=== PATIENT | female | born 1960 | race Caucasian/White ===

== ENCOUNTER 2016-03-06 14:58 | Outpatient (RCR) | payer BC ==
--- OUTSIDE RECORDS SUMMARY | 2016-03-06 15:00 | XMS REPORT | Continuity of Care Document ---
Author Author [facility] Organization [facility] Address Unknown Phone Unavailable Care Team Providers Care Regular Senior Care Provider Name Role Phone FERMIN JORGENSEN MD PCP Insurance Providers Payer Name Policy Number Subscriber Name Relationship [facility] [id number] Cary Fu 17 Self / Same As Patient Advance Directives Directive Response Recorded Date/Time Advance Directives Yes 06/18/14 9:10am Health Care Power of Mathematical Scientist Yes 06/18/14 9:10am Organ Donor Yes 06/18/14 9:10am Resuscitation Status Full Code 06/18/14 9:10am Problems No known problems or medical conditions. Medications No known medications. Social History Social History Problem Response Recorded Date/Time Recent Foreign Travel No 06/18/2014 9:17am Smoking Status Never a Smoker 06/18/2014 9:14am Do you dip or chew tobacco? No 06/18/2014 9:14am Query Response Start Date Stop Date Smoking Status Never a Smoker Hospital Discharge Instructions No hospital discharge instructions. Plan of Care No plan of care. Functional Status No functional status results. Allergies, Adverse Reactions, Alerts Allergen Type Severity Reaction Status Last Updated SULFA Allergy Unknown Active 06/18/14 TAPE Allergy Intermediate Active 06/18/14 Immunizations No immunization records. Vital Signs Acute Vital Signs Vital Response Date/Time Temperature (Fahrenheit) 97.5 degrees F (97.6 - 99.5) Temperature (Calculated Celsius) 36.77209 degrees C (36.4 - 37.5) Temperature Source Tympanic Pulse Rate (adult) 88 bpm (60 - 90) Respiratory Rate 20 bpm (12 - 24) O2 Sat by Pulse Oximetry 99 % (88 - 100) Blood Pressure 138/80 mm Hg Pain Pain Intensity 0 Height (Feet) 5 feet Height (Inches) 6.00 inches Height (Calculated Centimeters) 167.689374 cm Weight (Pounds) 250 pounds Weight (Calculated Grams) 882102.094 gm Weight (Calculated Kilograms) 113.464497 kilograms Height 5 ft 6 in Weight 250 lb Body Mass Index 40.4 kg/m^2 Results No known relevant diagnostic tests, laboratory data and/or discharge summary. Procedures Procedure Status Date Provider(s) Diagnostic colonoscopy completed 06/18/14 ZACKARY ASHBY MD Encounters Encounter Location Date/Time Registered [facility] 06/18/14 8:44am Registered Clinic [facility] 06/16/14 7:21am
== END 2016-06-04 | disposition home or self-care (01) ==
LOC: ONC 14:58
PROVIDERS: ATTEND Internal Medicine Hematology & Oncology
DX: C50.111 Malignant neoplasm of central portion of right female breast (principal)
CPT/HCPCS: 99213

== ENCOUNTER → 2017-02-27 | Outpatient (CLI) | payer BC ==
--- NOTE | 2017-03-01 07:51 | Diagnostic Imaging Report ---
Left breast screening mammogram 2D views with tomosynthesis The current study was also evaluated with a Computer Aided Detection (CAD) system. Indication: Screening. No current complaints stated on the questionnaire. Status post right mastectomy for breast cancer COMPARISON: 02/27/16 FINDINGS: Scattered fibroglandular densities are seen in the left breast and scattered benign appearing calcifications are noted. Allowing for technique and positional differences, no suspicious change is seen. IMPRESSION: No significant change. ACR BI-RADS Category 2: Benign findings. Result letter will be mailed to the patient. Note: At least 10% of breast cancer is not imaged by mammography. Dictated by: Dictated on workstation # [id number]
== END ==
LOC: RAD 08:47
PROVIDERS: ATTEND Nurse Practitioner Adult Health
DX: Z12.31 Encounter for screening mammogram for malignant neoplasm of breast (principal); Z85.3 Personal history of malignant neoplasm of breast; E28.319 Asymptomatic premature menopause

== ENCOUNTER 2017-03-04 14:50 | Outpatient (RCR) | payer BC ==
[2017-03-04 15:14] LABS: BASOPHILS % (AUTO) 0 % (0-10); EOSINOPHILS % (AUTO) 1 % (0-10); HEMATOCRIT 40 % (35-52); HEMOGLOBIN 14.1 G/DL (11.5-16.0); LYMPHOCYTES # (AUTO) 1.9 X 10^3 (1.0-4.0); LYMPHOCYTES % (AUTO) 32 % (12-44); MEAN CORPUSCULAR HEMOGLOBIN 30 PG (25-34); MEAN CORPUSCULAR HGB CONC 35 G/DL (32-36); MEAN CORPUSCULAR VOLUME 86 FL (80-99); MEAN PLATELET VOLUME 10.8 FL (7.4-10.4); MONOCYTES # (AUTO) 0.4 X 10^3 (0.0-1.0); MONOCYTES % (AUTO) 7 % (0-12); NEUTROPHILS # (AUTO) 3.7 X 10^3 (1.8-7.8); NEUTROPHILS % (AUTO) 61 % (42-75); PLATELET COUNT 235 10^3/uL (130-400); RED BLOOD COUNT 4.69 10^6/uL (4.35-5.85); RED CELL DISTRIBUTION WIDTH 13.5 % (10.0-14.5); WHITE BLOOD COUNT 6.1 10^3/uL (4.3-11.0)
[2017-03-04 15:38] LABS: ALANINE AMINOTRANSFERASE 22 U/L (0-55); ALBUMIN 4.4 GM/DL (3.2-4.5); ALKALINE PHOSPHATASE 63 U/L (40-136); BILIRUBIN,TOTAL 1.2 MG/DL (0.1-1.0); BUN/CREATININE RATIO 16; CALCIUM 9.7 MG/DL (8.5-10.1); CARBON DIOXIDE 23 MMOL/L (21-32); CHLORIDE 106 MMOL/L (98-107); CREATININE SERUM 0.87 MG/DL (0.60-1.30); GFR ESTIMATED > 60; GLUCOSE 97 MG/DL (70-105); POTASSIUM 3.9 MMOL/L (3.6-5.0); SODIUM 140 MMOL/L (135-145); TOTAL PROTEIN 7.6 GM/DL (6.4-8.2)
== END 2017-06-02 | disposition home or self-care (01) ==
LOC: ONC 14:50
PROVIDERS: ATTEND Internal Medicine Hematology & Oncology
DX: C50.111 Malignant neoplasm of central portion of right female breast (principal); E28.319 Asymptomatic premature menopause
CPT/HCPCS: 80053; 99213

== ENCOUNTER → 2017-10-22 | Outpatient (CLI) | payer BC ==
[~2017-10-22] MED LIST: IOHEXOL 350 MG/ML 100 ML (OMNIPAQUE 350) VIAL IV ONE; NS 250 ML (IVPB) BAG IV ONE
[2017-10-22 13:34] LABS: BUN/CREATININE RATIO 14; CREATININE SERUM 0.86 MG/DL (0.60-1.30); GFR ESTIMATED > 60
--- NOTE | 2017-10-22 14:30 | Diagnostic Imaging Report ---
PROCEDURE: CT chest and abdomen with contrast. TECHNIQUE: Multiple contiguous axial images were obtained through the chest and abdomen after the administration of intravenous contrast. INDICATION: Chest tightness. No prior studies are available for comparison. CT CHEST: Postop changes of right mastectomy are noted. No axillary lymphadenopathy is detected. No definite hilar or mediastinal lymphadenopathy is identified. No pericardial or pleural fluid is identified. The central airways are patent. Lungs appear to be clear apart from some scarring in the medial aspect of the right apex. No parenchymal mass or nodule is seen. The thoracic aorta is normal caliber. No dissection is identified. Visualized pulmonary arteries are unremarkable. IMPRESSION: Essentially unremarkable CT of the chest. CT ABDOMEN: No discrete liver mass is identified. The gallbladder is unremarkable. The pancreas and spleen are unremarkable. No adrenal mass is detected. There is a cyst in the right kidney measuring 4.1 x 3.3 cm. Kidneys are otherwise unremarkable. Abdominal aorta is normal caliber. No dissection is seen. No central, retroperitoneal or mesenteric lymphadenopathy is seen. The small and large bowel loops are normal caliber. There is no ascites. IMPRESSION: 1. Right renal cyst. 2. Otherwise unremarkable CT of the abdomen. No acute feature is detected. Dictated by: Dictated on workstation # [id number]
== END ==
LOC: CARD 13:01
PROVIDERS: ATTEND Physician Assistant
DX: R07.89 Other chest pain (principal); R10.13 Epigastric pain; N28.1 Cyst of kidney, acquired; Z85.3 Personal history of malignant neoplasm of breast; Z90.11 Acquired absence of right breast and nipple
CPT/HCPCS: 36415; 71260; 74160; 82565; 84520; 93005

== ENCOUNTER 2017-10-28 14:10 | Outpatient (RCR) | payer BC | END 2017-11-12 | disposition home or self-care (01) | LOC: CARD 14:10 | PROVIDERS: ATTEND Physician Assistant | DX: R00.2 Palpitations (principal) | CPT/HCPCS: 93225; 93226 ==

== ENCOUNTER → 2017-10-31 | Outpatient (CLI) | payer BC | LOC: LAB 09:28 | PROVIDERS: ATTEND Physician Assistant | DX: R10.13 Epigastric pain (principal); R07.89 Other chest pain; Z85.3 Personal history of malignant neoplasm of breast ==

== ENCOUNTER → 2017-11-11 | Outpatient (CLI) | payer BC | LOC: CARD 11:53 | PROVIDERS: ATTEND Internal Medicine Interventional Cardiology | DX: C50.111 Malignant neoplasm of central portion of right female breast (principal); R07.89 Other chest pain; I10 Essential (primary) hypertension; R00.2 Palpitations | CPT/HCPCS: 93306 ==

== ENCOUNTER 2017-12-17 12:00 | Outpatient (RCR) | payer BC ==
[2017-11-21 09:07] VITALS: BP 146/85
[2017-11-21 09:10] VITALS: BP 186/87
[2017-11-21 12:58] VITALS: BP 146/85
--- NOTE | 2017-11-21 12:58 | Cardiology Stress Test Report ---
Stress Test Report Type of NM Stress Test: Test Type: LEXISCAN 0.4MG/5ML Date of Procedure/Referring: Date of Procedure: Nov 21, 2017 PCP Oscar Waterman MD Admitting Physician Nirav Pittman MD Indications: Palpitations, chest pain Baseline Heart Rate: 85 Baseline Blood Pressure: Blood Pressure Systolic: 146 Blood Pressure Diastolic: 85 Baseline EKG: Baseline EKG: sinus rhythm Summary & Conclusion: Summary: The patient was brought to the stress lab after informed consent was taken. Stress test was performed according to the Lexiscan protocol. 0.4 mg of IV Lexiscan was given. Low-grade exercise was performed. Baseline EKG showed sinus rhythm at 85 BPM. Initial blood pressure was 146/85 mmHg. Maximum heart rate was 132 bpm and blood pressure 186/87 mmHg. Patient did not have any chest pain, arrhythmias or ST segment changes during the stress test. 10.33 mCi of Myoview were given for rest imaging and 30.2 mCi of Myoview given for stress imaging. EF 70 percent. Normal wall motion. Small to intermediate sized reversible apical defect. No infarct. Conclusion: Pharmacological stress test was negative for ischemia. Elevated blood pressure. Normal LV function with no wall motion abnormalities. All to intermediate size apical reversible defect. Clinical correlation is recommended.. Oscar WATERMAN MD Nov 21, 2017 12:58 pm
[~2017-12-17] VITALS: Ht 167.6 cm; Wt 105.7 kg
[~2017-12-17 12:00] MED LIST changes: +CATHETER FLUSH 10 ML SYR IV PRN; -IOHEXOL 350 MG/ML 100 ML (OMNIPAQUE 350) VIAL IV ONE; -NS 250 ML (IVPB) BAG IV ONE; +REGADENOSON 0.4 MG/5 ML SYR (LEXISCAN) IV ONE
== END 2018-02-19 | disposition home or self-care (01) ==
LOC: CARD 12:00
PROVIDERS: ATTEND Internal Medicine Interventional Cardiology
DX: R00.2 Palpitations (principal); I10 Essential (primary) hypertension; R07.89 Other chest pain; C50.111 Malignant neoplasm of central portion of right female breast
CPT/HCPCS: 78452; 93017; 93270

== ENCOUNTER → 2018-02-28 | Outpatient (CLI) | payer BC ==
--- NOTE | 2018-02-28 14:09 | Diagnostic Imaging Report ---
INDICATION: Routine screening. COMPARISON is made with prior mammograms from 02/27/2017 and 02/27/2016. TECHNIQUE: 2-D and 3-D unilateral left screening mammography was performed with CAD. FINDINGS: Scattered fibroglandular densities are identified in the left breast. No mass or malignant-appearing microcalcifications are seen. The left axilla is unremarkable. IMPRESSION: BI-RADS category 1. No mammographic features suspicious for malignancy are identified. ACR BI-RADS Category 1: Negative. Result letter will be mailed to the patient. Note: At least 10% of breast cancer is not imaged by mammography. Dictated by: Dictated on workstation # [id number]
== END ==
LOC: RAD 07:40
PROVIDERS: ATTEND Internal Medicine Hematology & Oncology
DX: Z12.31 Encounter for screening mammogram for malignant neoplasm of breast (principal); C50.111 Malignant neoplasm of central portion of right female breast

== ENCOUNTER → 2018-02-28 | Outpatient (CLI) | payer BC | LOC: LAB 08:10 | PROVIDERS: ATTEND Internal Medicine | DX: E78.2 Mixed hyperlipidemia (principal); C50.911 Malignant neoplasm of unspecified site of right female breast; K21.9 Gastro-esophageal reflux disease without esophagitis; Z79.899 Other long term (current) drug therapy ==

== ENCOUNTER 2018-03-11 09:24 | Outpatient (RCR) | payer BC | END 2018-05-29 | disposition home or self-care (01) | LOC: ONC 09:24 | PROVIDERS: ATTEND Internal Medicine Hematology & Oncology | DX: Z08 Encounter for follow-up examination after completed treatment for malignant neoplasm (principal); Z85.3 Personal history of malignant neoplasm of breast; E28.319 Asymptomatic premature menopause; G56.91 Unspecified mononeuropathy of right upper limb; E78.5 Hyperlipidemia, unspecified; I49.1 Atrial premature depolarization; E66.9 Obesity, unspecified; Z68.35 Body mass index [BMI] 35.0-35.9, adult; Z79.899 Other long term (current) drug therapy; Z90.11 Acquired absence of right breast and nipple; Z92.21 Personal history of antineoplastic chemotherapy; Z92.3 Personal history of irradiation | CPT/HCPCS: 36415; 80053; 85025; 99213 ==

== ENCOUNTER → 2019-03-02 | Outpatient (CLI) | payer BC ==
--- NOTE | 2019-03-02 11:38 | Diagnostic Imaging Report ---
INDICATION: Routine screening. Comparison is made with prior mammogram from 02/28/2018 and 02/27/2017. Unilateral left 2-D and 3-D screening mammography was performed with CAD. Scattered fibroglandular densities in the left breast are noted. The parenchymal pattern is stable. No mass or malignant-appearing microcalcifications are seen. Left axilla is unremarkable. IMPRESSION: BI-RADS Category 1 No mammographic features suspicious for malignancy are identified. ACR BI-RADS Category 1: Negative. Result letter will be mailed to the patient. Note: At least 10% of breast cancer is not imaged by mammography. Dictated by: Dictated on workstation # [id number]
== END ==
LOC: RAD 07:46
PROVIDERS: ATTEND Internal Medicine Hematology & Oncology
DX: Z12.31 Encounter for screening mammogram for malignant neoplasm of breast (principal); Z85.3 Personal history of malignant neoplasm of breast

== ENCOUNTER → 2019-03-10 | Outpatient (CLI) | payer BC | LOC: LAB 09:45 | PROVIDERS: ATTEND Internal Medicine | DX: Z53.9 Procedure and treatment not carried out, unspecified reason (principal) ==

== ENCOUNTER → 2019-03-10 | Outpatient (CLI) | payer BC | LOC: EDSTATUS 05-30 09:41 → ONC 09:42 | PROVIDERS: ATTEND Internal Medicine Hematology & Oncology | DX: C50.111 Malignant neoplasm of central portion of right female breast (principal) | CPT/HCPCS: 99213 ==

== ENCOUNTER → 2019-12-24 | Outpatient (CLI) | payer BC | LOC: CARD 10:44 | PROVIDERS: ATTEND Internal Medicine Interventional Cardiology | DX: I11.9 Hypertensive heart disease without heart failure (principal); I49.1 Atrial premature depolarization | CPT/HCPCS: 93306 ==

== ENCOUNTER → 2020-03-03 | Outpatient (CLI) | payer BC ==
--- NOTE | 2020-03-03 11:20 | Diagnostic Imaging Report ---
Indication: Routine screening. Comparison is made with prior mammogram from 03/02/2019 and 02/28/2018. Unilateral left 2-D and 3-D screening mammography was performed with CAD. Scattered fibroglandular densities are noted. The parenchymal pattern is stable. No mass or malignant appearing microcalcifications are seen. Left axilla is unremarkable. IMPRESSION: BI-RADS Category 1 No mammographic features suspicious for malignancy are identified. ACR BI-RADS Category 1: Negative. Result letter will be mailed to the patient. Note: At least 10% of breast cancer is not imaged by mammography. Dictated by: Dictated on workstation # [id number]
== END ==
LOC: RAD 08:00
PROVIDERS: ATTEND Nurse Practitioner Adult Health
DX: Z12.31 Encounter for screening mammogram for malignant neoplasm of breast (principal); Z85.3 Personal history of malignant neoplasm of breast
CPT/HCPCS: 77063

== ENCOUNTER → 2020-03-08 | Outpatient (CLI) | payer BC ==
[2020-03-08 10:04] LABS: BASOPHILS % (AUTO) 0 % (0-10); EOSINOPHILS % (AUTO) 0 % (0-10); HEMATOCRIT 43 % (35-52); HEMOGLOBIN 14.2 g/dL (11.5-16.0); LYMPHOCYTES # (AUTO) 1.4 10^3/uL (1.0-4.0); LYMPHOCYTES % (AUTO) 24 % (12-44); MEAN CORPUSCULAR HEMOGLOBIN 30 pg (25-34); MEAN CORPUSCULAR HGB CONC 33 g/dL (32-36); MEAN CORPUSCULAR VOLUME 90 fL (80-99); MEAN PLATELET VOLUME 11.1 fL (9.0-12.2); MONOCYTES # (AUTO) 0.4 10^3/uL (0.0-1.0); MONOCYTES % (AUTO) 6 % (0-12); NEUTROPHILS # (AUTO) 3.9 10^3/uL (1.8-7.8); NEUTROPHILS % (AUTO) 68 % (42-75); PLATELET COUNT 202 10^3/uL (130-400); WHITE BLOOD COUNT 5.7 10^3/uL (4.3-11.0)
[2020-03-08 10:26] LABS: ALANINE AMINOTRANSFERASE 24 U/L (0-55); ALBUMIN 4.4 GM/DL (3.2-4.5); ALKALINE PHOSPHATASE 67 U/L (40-136); BILIRUBIN,TOTAL 1.6 MG/DL (0.1-1.0); BUN/CREATININE RATIO 16; CALCIUM 9.2 MG/DL (8.5-10.1); CARBON DIOXIDE 25 MMOL/L (21-32); CHLORIDE 105 MMOL/L (98-107); CREATININE SERUM 0.86 MG/DL (0.60-1.30); GFR ESTIMATED > 60; GLUCOSE 94 MG/DL (70-105); POTASSIUM 3.8 MMOL/L (3.6-5.0); SODIUM 141 MMOL/L (135-145); TOTAL PROTEIN 7.2 GM/DL (6.4-8.2)
== END ==
LOC: ONC 11:16
PROVIDERS: ATTEND Internal Medicine Hematology & Oncology
DX: Z12.31 Encounter for screening mammogram for malignant neoplasm of breast (principal); I10 Essential (primary) hypertension; E78.5 Hyperlipidemia, unspecified; G56.91 Unspecified mononeuropathy of right upper limb; Z90.11 Acquired absence of right breast and nipple; Z92.21 Personal history of antineoplastic chemotherapy; Z85.3 Personal history of malignant neoplasm of breast
CPT/HCPCS: 80053; 85025; G0463; 99213

== ENCOUNTER → 2020-03-08 | Outpatient (CLI) | payer BC ==
[2020-03-08 10:26] LABS: CHOLESTEROL 175 MG/DL (< 200); HDL CHOLESTEROL 53 MG/DL (40-60); TRIGLYCERIDES 130 MG/DL (<150); VLDL CHOLESTEROL 26 MG/DL (5-40)
== END ==
LOC: LAB 11:13
PROVIDERS: ATTEND Internal Medicine
DX: E78.5 Hyperlipidemia, unspecified (principal)
CPT/HCPCS: 36415; 80061

== ENCOUNTER → 2021-03-06 | Outpatient (CLI) | payer BC ==
--- NOTE | 2021-03-06 09:03 | Diagnostic Imaging Report ---
INDICATION: Routine screening. COMPARISON: 03/03/2020 and 03/02/2019. TECHNIQUE: Unilateral left 2D and 3D screening mammography was performed with CAD. FINDINGS: Scattered fibroglandular densities are identified bilaterally. The parenchymal pattern is stable. No mass or malignant-appearing microcalcifications are seen. The left axilla is unremarkable. IMPRESSION: No mammographic features suspicious for malignancy are identified. ACR BI-RADS Category 1: Negative. Result letter will be mailed to the patient. Note: At least 10% of breast cancer is not imaged by mammography. Dictated by: Dictated on workstation # [id number]
== END ==
LOC: RAD 08:06
PROVIDERS: ATTEND Internal Medicine Hematology & Oncology
DX: Z12.31 Encounter for screening mammogram for malignant neoplasm of breast (principal); Z85.3 Personal history of malignant neoplasm of breast
CPT/HCPCS: 77063

== ENCOUNTER → 2021-03-28 | Outpatient (CLI) | payer BC | LOC: LAB 09:17 | PROVIDERS: ATTEND Internal Medicine Cardiovascular Disease | DX: E78.2 Mixed hyperlipidemia (principal) ==

== ENCOUNTER → 2021-03-28 | Outpatient (CLI) | payer BC | LOC: ONC 09:13 | PROVIDERS: ATTEND Internal Medicine Hematology & Oncology | DX: C50.911 Malignant neoplasm of unspecified site of right female breast (principal); G56.91 Unspecified mononeuropathy of right upper limb; I10 Essential (primary) hypertension; E78.5 Hyperlipidemia, unspecified; E66.9 Obesity, unspecified; Z90.11 Acquired absence of right breast and nipple; Z92.21 Personal history of antineoplastic chemotherapy; Z92.3 Personal history of irradiation; Z90.12 Acquired absence of left breast and nipple | CPT/HCPCS: 99213 ==

== ENCOUNTER → 2022-03-07 | Outpatient (CLI) | payer BC | LOC: ONC 08:33 | PROVIDERS: ATTEND Internal Medicine Hematology & Oncology | DX: C50.111 Malignant neoplasm of central portion of right female breast (principal); G62.9 Polyneuropathy, unspecified; I10 Essential (primary) hypertension; E78.2 Mixed hyperlipidemia; E66.9 Obesity, unspecified; Z90.11 Acquired absence of right breast and nipple; Z98.890 Other specified postprocedural states; Z92.21 Personal history of antineoplastic chemotherapy; Z92.3 Personal history of irradiation ==

== ENCOUNTER → 2022-03-07 | Outpatient (CLI) | payer BC ==
--- NOTE | 2022-03-07 09:40 | Diagnostic Imaging Report ---
INDICATION: Routine screening. Comparison is made with prior mammogram 03/06/2021 and 03/03/2020. Unilateral left 2-D and 3-D screening mammography was performed with CAD. Scattered fibroglandular densities in left breast are noted. The parenchymal pattern is stable. No mass or malignant malignant-appearing microcalcifications are seen. Left axilla is unremarkable. IMPRESSION: No mammographic features suspicious for malignancy are identified. ACR BI-RADS Category 1: Negative. Result letter will be mailed to the patient. Note: At least 10% of breast cancer is not imaged by mammography. BI-RADS Category 1 Dictated by: Dictated on workstation # [id number]
== END ==
LOC: RAD 08:02
PROVIDERS: ATTEND Nurse Practitioner Adult Health
DX: Z12.31 Encounter for screening mammogram for malignant neoplasm of breast (principal)
CPT/HCPCS: 77063

== ENCOUNTER → 2022-03-07 | Outpatient (CLI) | payer BC | LOC: LAB 08:36 | PROVIDERS: ATTEND Internal Medicine Cardiovascular Disease | DX: Z01.818 Encounter for other preprocedural examination (principal) ==

== ENCOUNTER 2022-03-15 10:18 | Outpatient (RCR) | payer BC | END 2022-04-14 | disposition home or self-care (01) | LOC: ONC 10:18 | PROVIDERS: ATTEND Internal Medicine Hematology & Oncology | DX: C50.111 Malignant neoplasm of central portion of right female breast (principal); G62.9 Polyneuropathy, unspecified; I10 Essential (primary) hypertension; E78.2 Mixed hyperlipidemia; E66.9 Obesity, unspecified; Z90.11 Acquired absence of right breast and nipple; Z98.890 Other specified postprocedural states; Z92.21 Personal history of antineoplastic chemotherapy; Z92.3 Personal history of irradiation | CPT/HCPCS: 99213 ==

== ENCOUNTER → 2023-03-11 | Outpatient (CLI) | payer BC ==
--- NOTE | 2023-03-11 12:54 | Diagnostic Imaging Report ---
INDICATION: Routine screening. COMPARISON: 03/07/2022 and 03/06/2021. TECHNIQUE: 2D and 3D unilateral left screening mammography was performed with CAD. FINDINGS: Scattered fibroglandular densities in the left breast are noted. The parenchymal pattern is stable. No mass or malignant-appearing microcalcifications are identified. The axillae are unremarkable. IMPRESSION: No mammographic features suspicious for malignancy are identified. ACR BI-RADS Category 1: Negative. Result letter will be mailed to the patient. Note: At least 10% of breast cancer is not imaged by mammography. Dictated by: Dictated on workstation # [id number]
== END ==
LOC: RAD 10:17
PROVIDERS: ATTEND Internal Medicine Hematology & Oncology
DX: Z12.31 Encounter for screening mammogram for malignant neoplasm of breast (principal)
CPT/HCPCS: 77063

== ENCOUNTER 2023-03-13 09:10 | Outpatient (RCR) | payer BC | END 2023-03-14 | disposition home or self-care (01) | LOC: ONC 09:10 | PROVIDERS: ATTEND Internal Medicine Hematology & Oncology | DX: C50.111 Malignant neoplasm of central portion of right female breast (principal); G62.9 Polyneuropathy, unspecified; I10 Essential (primary) hypertension; E78.2 Mixed hyperlipidemia; E66.9 Obesity, unspecified; Z90.11 Acquired absence of right breast and nipple; Z98.890 Other specified postprocedural states; Z92.21 Personal history of antineoplastic chemotherapy; Z92.3 Personal history of irradiation ==

== ENCOUNTER → 2023-03-13 | Outpatient (CLI) | payer BC | LOC: LAB 09:16 | PROVIDERS: ATTEND Internal Medicine Cardiovascular Disease | DX: E78.2 Mixed hyperlipidemia (principal) ==